=== PATIENT | female | born 1980 | race American Indian/Alaskan Native ===

== ENCOUNTER 2022-08-20 11:04 | Outpatient (CLI) | payer MEDICAID ==
--- NOTE | 2022-08-20 14:56 | Magnetic Resonance Report ---
MRI BREAST BILATERAL WITH AND WITHOUT CONTRAST, 08/20/2022 CLINICAL INFORMATION / INDICATION: GENETIC SUSCEPTIBILITY TO MALIGNANT NEOPLASM OF BREAST. TECHNIQUE: Axial T1 and T2-weighted fat sat images were obtained precontrast. 18 cc Clariscan contras t was injected intravenously and serial axial T1 weighted images with fat saturation were obtained. 3 -D MIP projections, kinetic analysis, and subtraction imaging were utilized to evaluate. A dedicated 8-channel breast coil was used for image acquisition. COMPARISON: Screening mammogram from 01/11/2022. FINDINGS: BREAST DENSITY: Heterogeneously dense. BACKGROUND ENHANCEMENT: Moderate background enhancement within both breasts. RIGHT BREAST: No dominant mass or suspicious area of enhancement in the right breast. LEFT BREAST: No dominant mass or suspicious area of enhancement in the left breast. AXILLAE: No pathologically enlarged axillary lymph nodes. ADDITIONAL FINDINGS: Limited imaging of the thorax and upper abdomen demonstrates no focal abnormalit y. IMPRESSION: 1. No MRI evidence of malignancy. Follow up recommendation: Routine yearly screening mammogram. BI-RADS Category 1: NEGATIVE. Signer Name: Rico Shepherd MD Signed: 08/20/2022 2:52 PM Workstation Name: [id number]
== END 2022-08-20 11:05 | disposition home or self-care (01) ==
LOC: SPVIMAG 11:04
PROVIDERS: ATTEND Surgery
DX: N64.89 Other specified disorders of breast (principal); Z15.01 Genetic susceptibility to malignant neoplasm of breast
CPT/HCPCS: A9575; C8908; 77049